=== PATIENT | male | born 1970 | race Caucasian/White ===

== ENCOUNTER 2016-07-19 12:22 | Emergency (ER) | payer MEDICAID ==
[~2016-07-19] VITALS: Ht 177.8 cm; Wt 92.1 kg
[~2016-07-19 12:22] MED LIST: NOR7.5T
[2016-07-19 13:29] VITALS: BP 107/70
== END 2016-07-19 13:35 | disposition home or self-care (01) ==
LOC: ER 12:30
DX: G89.4 Chronic pain syndrome (principal); M25.561 Pain in right knee; F41.9 Anxiety disorder, unspecified; M79.7 Fibromyalgia; Z87.442 Personal history of urinary calculi

== ENCOUNTER 2016-11-06 23:26 | Emergency (ER) | payer SELFPAY ==
[~2016-11-06] VITALS: Ht 180.3 cm; Wt 90.7 kg
[2016-11-06 23:59] LABS: Urine Bilirubin Negative (Negative); Urine Blood Negative /uL (Negative); Urine Color Yellow (Yellow); Urine Glucose Normal (Normal); Urine Hyaline Cast MOD /lpf (0 - 2); Urine Ketone 1+ (Negative); Urine Mucus FEW (None Seen); Urine Nitrite Negative (Negative); Urine RBC 1 /hpf (0 - 3); Urine Squamous Epithelial Cell MOD /hpf (<5); Urine pH 5.5 (5.0-8.0)
[2016-11-07 00:03] LABS: Basophils # (auto) 0.1 uL; Basophils % (auto) 1.3 % (0.0-2.0); Eosinophils # (auto) 0.1 uL; Eosinophils % (auto) 0.5 % (0.0-7.0); Hematocrit 44.6 % (41.0-53.0); Hemoglobin 14.8 g/dL (13.5-17.5); Lymphocytes # (auto) 2.1 uL; Lymphocytes % (auto) 19.3 % (10.0-50.0); Mean Corpuscular Hemoglobin 30.6 pg (28.0-32.0); Mean Corpuscular Hgb Conc. 33.2 g/dL (32.0-36.0); Mean Corpuscular Volume 92.1 fL (80.0-100.0); Mean Platelet Volume 8.1 fL (7.4-10.4); Monocytes # (auto) 0.9 uL; Monocytes % (auto) 7.9 % (0.0-12.0); Neutrophils # (auto) 7.9 uL; Platelet Count (auto) 378 10^3/uL (140-450); Red Cell Distribution Width 12.5 % (11.6-16.0); White Blood Cell 11.1 10^3/uL (4.4-10.8)
[2016-11-07 00:16] LABS: INR 0.98 (0.9-1.15); Partial Thromboplastin Time 28.3 sec (22.64-33.71); Prothrombin Time 10.7 sec (9.37-12.3)
[2016-11-07 00:29] LABS: Albumin 4.2 g/dL (3.4-5.0); Alkaline Phosphatase 79 U/L (45-117); Anion Gap 12 (5-15); Aspartate Aminotransferase 50 U/L (15-37); Bilirubin, Total 0.9 mg/dL (0.2-1.0); Blood Urea Nitrogen 24 mg/dL (7-18); Calcium 9.2 mg/dL (8.5-10.1); Carbon Dioxide 27 mmol/L (21-32); Chloride 101 mmol/L (98-107); GFR African American 75 mL/min; GFR Non-African American 62 mL/min; Glucose 89 mg/dL (74-106); Magnesium 2.4 mg/dL (1.6-2.6); Sodium 140 mmol/L (136-145); Total Protein 7.9 g/dL (6.4-8.2)
[2016-11-07 00:33] LABS: B-Type Natriuretic Peptide 1.64 pg/mL (0-100)
[2016-11-07 00:35] LABS: Temperature: 23.5 C (20.0-25.0)
[2016-11-07] MEDS ORDERED: SODIUM CHLORIDE 0.9% 1,000 ML IV ONE (03:15)
[2016-11-07 03:43] VITALS: BP 157/82
== END 2016-11-07 05:39 | disposition home or self-care (01) ==
LOC: ER 23:26
DX: R06.02 Shortness of breath (principal); E86.0 Dehydration; F15.10 Other stimulant abuse, uncomplicated; F17.210 Nicotine dependence, cigarettes, uncomplicated; F12.10 Cannabis abuse, uncomplicated
CPT/HCPCS: 36415; 71010; 80053; 80307; 81001; 83735; 83880; 84484; 85025; 85610; 85730; 93005; 96360; 99285; J7030

== ENCOUNTER 2017-06-11 08:23 | Emergency (ER) | payer MEDICAID ==
[~2017-06-11] VITALS: Ht 177.8 cm; Wt 90.7 kg
[2017-06-11 08:31] VITALS: BP 112/62
== END 2017-06-11 09:37 | disposition home or self-care (01) ==
LOC: ER 08:23
DX: J40 Bronchitis, not specified as acute or chronic (principal); F17.210 Nicotine dependence, cigarettes, uncomplicated
CPT/HCPCS: 71046

== ENCOUNTER 2017-10-31 09:57 | Emergency (ER) | payer MEDICAID ==
[~2017-10-31] VITALS: Ht 177.8 cm; Wt 90.7 kg
[2017-10-31 11:09] VITALS: BP 115/68
== END 2017-10-31 11:28 | disposition home or self-care (01) ==
LOC: ER 10:01
DX: S91.312D Laceration without foreign body, left foot, subsequent encounter (principal); F17.210 Nicotine dependence, cigarettes, uncomplicated; X58.XXXD Exposure to other specified factors, subsequent encounter

== ENCOUNTER 2018-07-01 17:23 | Emergency (ER) | payer MEDICAID ==
[~2018-07-01] VITALS: Ht 180.3 cm; Wt 90.7 kg
[2018-07-01 17:44] VITALS: BP 121/66
== END 2018-07-01 18:47 | disposition left against medical advice (07) ==
LOC: ER 17:24
DX: M25.512 Pain in left shoulder (principal); Z53.21 Procedure and treatment not carried out due to patient leaving prior to being seen by health care provider; W18.39XA Other fall on same level, initial encounter; Y93.89 Activity, other specified; Y92.89 Other specified places as the place of occurrence of the external cause; Y99.8 Other external cause status
CPT/HCPCS: 73030

== ENCOUNTER 2018-07-09 07:54 | Emergency (ER) | payer MEDICAID ==
[~2018-07-09] VITALS: Ht 177.8 cm; Wt 90.7 kg
[2018-07-09 08:17] VITALS: BP 131/76
[2018-07-09] MEDS ORDERED: KETOROLAC TROMETH 60MG/2ML VIAL IM ONE (08:30)
== END 2018-07-09 09:00 | disposition home or self-care (01) ==
LOC: ER 07:54
DX: S40.012A Contusion of left shoulder, initial encounter (principal); E78.5 Hyperlipidemia, unspecified; F17.210 Nicotine dependence, cigarettes, uncomplicated; F41.9 Anxiety disorder, unspecified; W18.39XA Other fall on same level, initial encounter; Y93.02 Activity, running; Y92.89 Other specified places as the place of occurrence of the external cause; Y99.8 Other external cause status
CPT/HCPCS: 96372; 99283; J1885

== ENCOUNTER 2018-10-07 23:55 | Emergency (ER) | payer MEDICAID ==
[~2018-10-07] VITALS: Ht 172.7 cm; Wt 54.4 kg
[2018-10-08] MEDS ORDERED: cefTRIAXone SOD 1,000 MG VL IM ONE (08:30)
[2018-10-08] MEDS ORDERED: HYDROcodone-ACET 7.5/325MG TAB PO ONE (08:30)
[2018-10-08 09:52] VITALS: BP 100/55
== END 2018-10-08 09:55 | disposition home or self-care (01) ==
LOC: EDBD 23:55 → ER 10-08
DX: T25.022A Burn of unspecified degree of left foot, initial encounter (principal); E78.00 Pure hypercholesterolemia, unspecified; F17.210 Nicotine dependence, cigarettes, uncomplicated; Z79.899 Other long term (current) drug therapy; X58.XXXA Exposure to other specified factors, initial encounter; Y93.89 Activity, other specified; Y92.89 Other specified places as the place of occurrence of the external cause; Y99.8 Other external cause status
CPT/HCPCS: 96372; 99283; J0696

== ENCOUNTER 2019-04-05 05:48 | Emergency (ER) | payer SELFPAY ==
[~2019-04-05] VITALS: Ht 177.8 cm; Wt 90.7 kg
[2019-04-05 07:05] LABS: Basophils # (auto) 0 uL; Basophils % (auto) 0.3 % (0.0-2.0); Eosinophils # (auto) 0 uL; Eosinophils % (auto) 0.1 % (0.0-7.0); Hematocrit 40.1 % (41.0-53.0); Hemoglobin 13.5 g/dL (13.5-17.5); Lymphocytes # (auto) 1.2 uL; Lymphocytes % (auto) 14.8 % (10.0-50.0); Mean Corpuscular Hgb Conc. 33.7 g/dL (32.0-36.0); Mean Corpuscular Volume 92.1 fL (80.0-100.0); Monocytes # (auto) 0.5 uL; Monocytes % (auto) 6.7 % (0.0-12.0); Neutrophils # (auto) 6.3 uL; Neutrophils % (auto) 78.1 % (37.0-80.0); Platelet Count (auto) 406 10^3/uL (140-450); Red Blood Cells 4.36 10^6/uL (4.5-5.90); Red Cell Distribution Width 13.8 % (11.8-14.3)
[2019-04-05 07:24] LABS: Alcohol, Urine < 3.0 mg/dL (0-5); Amphetamine Screen, Urine POSITIVE (NEGATIVE); Barbiturate Scree,Urine NEGATIVE (NEGATIVE); Benzodiazephine Screen, Urine NEGATIVE (NEGATIVE); Cannabinoid Screen, Urine NEGATIVE (NEGATIVE); Cocaine Screen, Urine NEGATIVE (NEGATIVE); Opiate Scree,Urine NEGATIVE (NEGATIVE); Phencyclidine Screen, Urine NEGATIVE (NEGATIVE)
[2019-04-05 07:28] LABS: Albumin 4.1 g/dL (3.4-5.0); BUN/Creatinine Ratio 15.6; Calcium 8.8 mg/dL (8.5-10.1); Potassium 3.8 mmol/L (3.5-5.1)
[2019-04-05 07:31] LABS: Bilirubin, Total 0.3 mg/dL (0.2-1.0); Total Protein 7.7 g/dL (6.4-8.2)
[2019-04-05 07:36] LABS: Urine Bacteria NONE SEEN /hpf (None Seen); Urine Blood Negative /uL (Negative); Urine Mucus FEW (None Seen); Urine Specific Gravity 1.028 (1.001-1.035); Urine WBC 4 /hpf (0 - 3)
[2019-04-05 08:35] VITALS: BP 153/95
== END 2019-04-05 08:53 | disposition home or self-care (01) ==
LOC: ER 05:48
DX: R00.2 Palpitations (principal); E78.5 Hyperlipidemia, unspecified; F17.210 Nicotine dependence, cigarettes, uncomplicated; F12.10 Cannabis abuse, uncomplicated; Z02.89 Encounter for other administrative examinations
CPT/HCPCS: 36415; 80053; 80307; 81001; 83735; 85025; 93005

== ENCOUNTER 2019-04-10 18:06 | Emergency (ER) | payer SELFPAY ==
[~2019-04-10] VITALS: Ht 177.8 cm; Wt 90.7 kg
[2019-04-10 19:45] VITALS: BP 124/75
== END 2019-04-10 19:35 | disposition home or self-care (01) ==
LOC: ER 18:06
DX: R10.84 Generalized abdominal pain (principal); F15.10 Other stimulant abuse, uncomplicated; F17.210 Nicotine dependence, cigarettes, uncomplicated; F12.10 Cannabis abuse, uncomplicated; E78.5 Hyperlipidemia, unspecified

== ENCOUNTER 2021-03-27 16:44 | Emergency (ER) | payer MEDICAID ==
[~2021-03-27] VITALS: Ht 177.8 cm; Wt 90.7 kg
[2021-03-27 16:46] VITALS: BP 120/77
[2021-03-27] MEDS ORDERED: ONDANSETRON HCL 4 MG/2 ML VIAL IV ONE (21:30)
[2021-03-27] MEDS ORDERED: PIPERACILLIN-TAZO 4.5GM 100 ML IV ONE (21:30)
[2021-03-27] MEDS ORDERED: MORPHINE SULFATE 4 MG/ML SYR/VIAL IV ONE (21:30)
[2021-03-27] MEDS ORDERED: VANCOMYCIN 1GM/250ML 250 ML IV ONE (21:30)
== END 2021-03-28 00:35 | disposition left against medical advice (07) ==
LOC: ER 16:44
DX: M79.89 Other specified soft tissue disorders (principal); F17.210 Nicotine dependence, cigarettes, uncomplicated; F15.10 Other stimulant abuse, uncomplicated; E78.5 Hyperlipidemia, unspecified; Z53.29 Procedure and treatment not carried out because of patient's decision for other reasons